=== PATIENT | male | born 1970 | race Hispanic/Latino ===

== ENCOUNTER 2022-09-15 06:05 | Day surgery (SDC) | payer OTHER ==
[2022-09-13 10:24] LABS: BASOPHILS % (AUTO) 1.6 % (0.0-5.0); EOSINOPHILS % (AUTO) 2.1 % (0.0-8.0); HEMATOCRIT 39.3 % (42-54); LYMPHOCYTES % (AUTO) 33.2 % (21.0-51.0); MEAN CORPUSCULAR HGB CONC 32.6 g/dL (32.0-36.0); NEUTROPHILS % (AUTO) 55.7 % (40.0-77.0); PLATELET COUNT (AUTO) 305 K/uL (130-400); RED BLOOD CELL COUNT(AUTO) 4.57 MIL/uL (4.50-6.20); RED CELL DISTRIBUTION WIDTH 13.2 % (11.0-15.5); WHITE BLOOD COUNT (AUTO) 7.1 K/uL (4.8-10.8)
[2022-09-13 10:33] LABS: ALBUMIN 3.2 g/dL (3.5-5.0); CREATININE 0.9 mg/dL (0.5-1.5); CRP QUANTITATIVE 2.5 mg/L (0.00-9.0); POTASSIUM 3.9 mmol/L (3.5-5.1)
[2022-09-13 11:23] VITALS: BP 140/93
[2022-09-15] VITALS (18 sets, daily range): BP systolic 85–129; BP diastolic 48–82
[~2022-09-15] VITALS: Ht 177.8 cm; Wt 104.2 kg
[~2022-09-15 06:05] MED LIST: ALBUTEROL INHALER PUFF; CEFAZOLIN SODIUM 1 GM VIAL IVPB PRN; GABA300C PO; LOSA100T59 PO; OMEP20CA12 PO; PRAZ5CAP2 PO; SERT200C PO; TRAZ-187 PO
[2022-09-15] MEDS ORDERED: LACTATED RINGERS 1000ML 1,000 ML IV ONE (06:21)
[2022-09-15] MEDS ORDERED: SUCCINYLCHOLINE CHLORIDE 20 MG/ML 10 ML VIAL ONE (07:28)
[2022-09-15] MEDS ORDERED: LIDOCAINE PF 100MG/5ML (2%) SYRINGE 5ML ONE (07:29)
[2022-09-15] MEDS ORDERED: PROPOFOL 10 MG/ML 20ML VIAL IV ONE (07:29)
[2022-09-15] MEDS ORDERED: GLYCOPYRROLATE 1 MG/5 ML SYRINGE ONE (07:30)
[2022-09-15] MEDS ORDERED: NEOSTIGMINE 5MG/5ML SYR IV ONE ×2 (07:30→09:05)
[2022-09-15] MEDS ORDERED: DEXAMETHASONE SOD PHOSPHATE 10MG/ML 1ML VIAL ONE (07:30)
[2022-09-15] MEDS ORDERED: MIDAZOLAM HCL 1 MG/ML 2ML VIAL ONE (07:30)
[2022-09-15] MEDS ORDERED: ROCURONIUM 10MG/1ML SYR 10 MG/ML ML ONE (07:31)
[2022-09-15] MEDS ORDERED: FENTANYL CITRATE PF 50 MCG/1 ML 2ML VIAL ONE (07:31)
[2022-09-15] MEDS ORDERED: ONDANSETRON 4MG INJ ONE (07:31)
[2022-09-15] MEDS ORDERED: CEFAZOLIN SODIUM 2 GM VIAL IVPB ONE (08:30)
[2022-09-15] MEDS ORDERED: BUPIVACAINE/PF 0.25% 30ML VIAL IJ ONE ×2 (08:40→10:03)
[2022-09-15] MEDS ORDERED: MORPHINE PF 100MG/10ML AMP IV ONE (09:09)
[2022-09-15] MEDS ORDERED: ACET-2079 PO (10:23)
== END 2022-09-15 12:10 | disposition home or self-care (01) ==
LOC: DAH 06:05
PROVIDERS: ATTEND Student in an Organized Health Care Education/Training Program
DX: G56.01 Carpal tunnel syndrome, right upper limb (principal); Z20.822 Contact with and (suspected) exposure to COVID-19; G56.21 Lesion of ulnar nerve, right upper limb; F41.9 Anxiety disorder, unspecified; F32.A Depression, unspecified; K21.9 Gastro-esophageal reflux disease without esophagitis; Z79.899 Other long term (current) drug therapy; Z79.01 Long term (current) use of anticoagulants; Z98.890 Other specified postprocedural states
CPT/HCPCS: 82040; 80048; 85025; 84134; 86140; 87426; 36415; 64718; 64721; 82948; A4663; A4565; J7120; J3010; J0690 ×2; J3490 ×3; J1100; J2710; J0330; J2001; J2250; J2704; J2274; J2405; A6223; A4649 ×2; A4215; A4223; A4222; A4221

== ENCOUNTER 2023-02-02 06:05 | Day surgery (SDC) | payer OTHER ==
[2023-02-01 07:53] LABS: BASOPHILS # (AUTO) 0.08 K/uL (0.00-0.20); BASOPHILS % (AUTO) 1.4 % (0.0-5.0); EOSINOPHILS # (AUTO) 0.21 K/uL (0.00-0.70); EOSINOPHILS % (AUTO) 3.6 % (0.0-8.0); HEMATOCRIT 40.1 % (42-54); IMMATURE GRANULOCYTE ABSOLUTE 0.01 K/uL (0-1); LYMPHOCYTES # (AUTO) 1.6 K/uL (1.0-4.8); MEAN CORPUSCULAR HEMOGLOBIN 27.1 pg (27.0-33.0); MEAN CORPUSCULAR HGB CONC 32.9 g/dL (32.0-36.0); MEAN CORPUSCULAR VOLUME 82.3 fL (79-99); MONOCYTES # (AUTO) 0.6 K/uL (0.1-1.0); MONOCYTES % (AUTO) 9.7 % (3.0-13.0); NEUTROPHILS # (AUTO) 3.4 K/uL (1.8-7.7); NEUTROPHILS % (AUTO) 58.1 % (40.0-77.0); PLATELET COUNT (AUTO) 260 K/uL (130-400); RED BLOOD CELL COUNT(AUTO) 4.87 MIL/uL (4.50-6.20); RED CELL DISTRIBUTION WIDTH 13.1 % (11.0-15.5); WHITE BLOOD COUNT (AUTO) 5.9 K/uL (4.8-10.8)
[2023-02-01 08:09] LABS: CREATININE 1.1 mg/dL (0.5-1.5); POTASSIUM 3.8 mmol/L (3.5-5.1)
[2023-02-01 08:26] LABS: INR < 0.93 (0.85-1.15); PROTHROMBIN TIME 10.3 SEC (9.6-11.6)
[2023-02-01 08:27] LABS: PARTIAL THROMBOPLASTIN TIME 29.2 SEC (26.3-35.5)
[2023-02-01 08:40] VITALS: BP 107/69; PULSE 86; RESP 16
[2023-02-02] VITALS (16 sets, daily range): BP systolic 90–128; BP diastolic 59–89; PULSE 72–98; RESP 12–16
[~2023-02-02] VITALS: Ht 177.8 cm; Wt 99.0 kg
[~2023-02-02 06:05] MED LIST changes: -CEFAZOLIN SODIUM 1 GM VIAL IVPB PRN; +LISI20TA24 PO; -LOSA100T59 PO
[2023-02-02] MEDS ORDERED: CEFAZOLIN SODIUM 2 GM VIAL ONE (06:16)
[2023-02-02] MEDS ORDERED: LACTATED RINGERS 1000ML 1,000 ML IV ONE (06:16)
[2023-02-02] MEDS ORDERED: FENTANYL CITRATE PF 50 MCG/1 ML 5ML AMP IV ONE ×3 (06:23→06:56)
[2023-02-02] MEDS ORDERED: BUPIVACAINE/PF 0.25% 30ML VIAL IJ ONE ×2 (07:01→07:29)
[2023-02-02] MEDS ORDERED: PROPOFOL 10 MG/ML 20ML VIAL IV ONE (07:11)
[2023-02-02] MEDS ORDERED: MIDAZOLAM HCL 1 MG/ML 5ML VIAL ONE (07:12)
[2023-02-02] MEDS ORDERED: ACET-2079 PO (07:16)
[2023-02-02] MEDS ORDERED: MEPERIDINE-PF 25 MG/ML SYG ONE (07:19)
[2023-02-02] MEDS ORDERED: CEFAZOLIN SODIUM 2 GM VIAL IVPB ONE (07:20)
[2023-02-02] MEDS ORDERED: KETAMINE 50MG/ML SYRINGE 50 MG/ML DISP.SYRIN ONE (07:26)
[2023-02-02] MEDS ORDERED: DEXMEDETOMIDINE HCL 200 MCG/2 ML VIAL IV ONE (07:26)
[2023-02-02] MEDS ORDERED: MORPHINE PF 100MG/10ML AMP IV ONE (07:27)
[2023-02-02] MEDS ORDERED: EPINEPHRINE PF 1MG (1:1,000) 1 MG/ML AMP ONE (09:06)
== END 2023-02-02 09:25 | disposition home or self-care (01) ==
LOC: DAH 06:05
PROVIDERS: ATTEND Student in an Organized Health Care Education/Training Program
DX: M65.311 Trigger thumb, right thumb (principal); K21.9 Gastro-esophageal reflux disease without esophagitis; F41.9 Anxiety disorder, unspecified; F32.A Depression, unspecified; Z79.899 Other long term (current) drug therapy; Z79.01 Long term (current) use of anticoagulants
CPT/HCPCS: 80048; 85025; 85610; 85730; 36415; 26055; A4663; J7120 ×2; J3010 ×3; J0665 ×2; J0171; J2250; J2704; J2274; J2175; J3490 ×2; J0690 ×2; A6223; A4649 ×2; A4215; A4223; A4222; A4221

== ENCOUNTER 2023-05-16 11:28 | Day surgery (SDC) | payer OTHER ==
[2023-05-14 10:51] VITALS: BP 131/81; PULSE 68; RESP 18
[2023-05-14 11:01] LABS: BASOPHILS # (AUTO) 0.11 K/uL (0.00-0.20); BASOPHILS % (AUTO) 1.2 % (0.0-5.0); EOSINOPHILS # (AUTO) 0.15 K/uL (0.00-0.70); EOSINOPHILS % (AUTO) 1.7 % (0.0-8.0); IMMATURE GRANULOCYTE ABSOLUTE 0.04 K/uL (0-1); LYMPHOCYTES # (AUTO) 1.8 K/uL (1.0-4.8); LYMPHOCYTES % (AUTO) 20.7 % (21.0-51.0); MEAN CORPUSCULAR HEMOGLOBIN 28.5 pg (27.0-33.0); MEAN CORPUSCULAR HGB CONC 33.6 g/dL (32.0-36.0); MEAN CORPUSCULAR VOLUME 84.9 fL (79-99); MONOCYTES # (AUTO) 0.9 K/uL (0.1-1.0); NEUTROPHILS # (AUTO) 5.9 K/uL (1.8-7.7); PLATELET COUNT (AUTO) 289 K/uL (130-400); RED CELL DISTRIBUTION WIDTH 12.9 % (11.0-15.5); WHITE BLOOD COUNT (AUTO) 8.9 K/uL (4.8-10.8)
[2023-05-14 11:06] LABS: POTASSIUM 5.1 mmol/L (3.5-5.1)
[2023-05-14 11:09] LABS: INR <= 0.93 (0.85-1.15); PROTHROMBIN TIME 10.3 SEC (9.6-11.6)
[2023-05-14 11:11] LABS: PARTIAL THROMBOPLASTIN TIME 29.5 SEC (26.3-35.5)
[2023-05-14 11:17] LABS: ADD UA MICROSCOPIC NO; APPEARANCE,URINE CLEAR (CLEAR); BILIRUBIN,URINE NEGATIVE (NEGATIVE); COLOR,URINE COLORLESS (YELLOW); GLUCOSE, URINE (UA) NEGATIVE (NEGATIVE); KETONES,URINE NEGATIVE (NEGATIVE); LEUKOCYTE ESTERASE ,URINE NEGATIVE Leu/uL (NEGATIVE); NITRATE,URINE NEGATIVE (NEGATIVE); OCCULT BLOOD,URINE NEGATIVE (NEGATIVE); PROTEIN,URINE NEGATIVE (NEGATIVE); UROBILINOGEN,URINE 0.2 mg/dL (0.2-1.0)
[2023-05-14 11:26] LABS: B-TYPE NATRIURETIC PEPTIDE 26 pg/mL (0-100)
[2023-05-16] VITALS (9 sets, daily range): BP systolic 114–143; BP diastolic 79–93; PULSE 58–74; RESP 15–18
[~2023-05-16] VITALS: Ht 177.8 cm; Wt 101.5 kg
[~2023-05-16 11:28] MED LIST changes: +ACET-2079 PO; +ALBUTEROL INHALER IH; -ALBUTEROL INHALER PUFF; +FLUT15.845 NS; +FLUT1BLS12 IH; +LATA2.5D14 OU; -LISI20TA24 PO; +LOSA25TA41 PO; +METO-391 PO; +RIVA20TA PO; +ROSU20TA73 PO; +SERT-440 PO; -SERT200C PO
[2023-05-16] MEDS ORDERED: IOHEXOL 350 MG/ML 100ML INFUS..BTL IV ONE (16:10)
[2023-05-16] MEDS ORDERED: FENTANYL CITRATE PF 50 MCG/1 ML 2ML VIAL ONE (16:10)
[2023-05-16] MEDS ORDERED: IOHEXOL-350 50ML VIAL IV ONE (16:10)
[2023-05-16] MEDS ORDERED: MIDAZOLAM HCL 1 MG/ML 2ML VIAL ONE (16:10)
[2023-05-16] MEDS ORDERED: LIDOCAINE HCL 400MG/20ML VIAL ONE (16:10)
[2023-05-16] MEDS ORDERED: NITROGLYCERIN 50MG VIAL ONE (16:22)
[2023-05-16] MEDS ORDERED: 0.9%NACL 1000ML 1,000 ML IV SCH (17:30)
== END 2023-05-16 20:20 | disposition home or self-care (01) ==
LOC: DAH 11:28
PROVIDERS: ATTEND Internal Medicine Cardiovascular Disease
DX: I25.119 Atherosclerotic heart disease of native coronary artery with unspecified angina pectoris (principal); I10 Essential (primary) hypertension; F41.9 Anxiety disorder, unspecified; E78.2 Mixed hyperlipidemia; F32.A Depression, unspecified; K21.9 Gastro-esophageal reflux disease without esophagitis; Z79.899 Other long term (current) drug therapy; Z79.01 Long term (current) use of anticoagulants; Z98.890 Other specified postprocedural states; Z82.49 Family history of ischemic heart disease and other diseases of the circulatory system; Z72.89 Other problems related to lifestyle
CPT/HCPCS: 80048; 83880; 85025; 85610; 85730; 81003; 36415; 71045; 93005; 93458; C1894 ×2; C1760 ×2; J3010; J3490 ×2; J2250; J1644; Q9967 ×2; A4215; A4222; A4221; A4663; A4216; A4606; Q9965; A4223 ×3; 99156; 99157